=== PATIENT | female | born 1975 | race Caucasian/White ===

== ENCOUNTER 2024-02-18 05:23 | Day surgery (SDC) | payer MEDICAID ==
[~2024-02-18] VITALS: Ht 160 cm; Wt 89.5 kg
[~2024-02-18 05:23] MED LIST: AMYL1CAP63 PO; CHOL378P13 PO; FAMO20 PO; FERR325T23 PO; FEXO-353 PO; HYOS0.122 PO; LOSA-382 PO; METF-445 PO; ONDA-243 PO
[2024-02-18] MEDS ORDERED: FentaNYL CITRATE PF 100 MCG/2 ML VIAL ONE (05:26)
[2024-02-18] MEDS ORDERED: MIDAZOLAM HCL 2 MG/2 ML VIAL ONE (05:26)
[2024-02-18] MEDS ORDERED: MOXIFLOXACIN HCL 0.5% 3 ML OPHTHALMIC SOLUTION ONE ×3 (05:28→12:00)
[2024-02-18] MEDS ORDERED: RINGERS SOLUTION,LACTATED 500 ML IV ONE (05:28)
[2024-02-18] MEDS ORDERED: TETRACAINE HCL/PF 0.5% 4 ML OPHTHALMIC SOLUTION ONE ×3 (05:29→12:00)
[2024-02-18] MEDS ORDERED: PHENYLEPHRINE HCL 2.5% 2 ML OPHTHALMIC SOLUTION ONE (05:29)
[2024-02-18] MEDS: TETRACAINE HCL/PF 0.5% 4 ML OPHTHALMIC SOLUTION OS ONE (06:07)
[2024-02-18] MEDS: PHENYLEPHRINE HCL 2.5% 2 ML OPHTHALMIC SOLUTION OS ONE (06:08)
[2024-02-18] MEDS: MOXIFLOXACIN HCL 0.5% 3 ML OPHTHALMIC SOLUTION OS ONE (06:08)
[2024-02-18] MEDS: RINGERS SOLUTION,LACTATED 500 ML IV ONE (06:23)
[2024-02-18 06:41] LABS: GLUCOMETER DEV NAME(LOC) SDS.; GLUCOSE,POINT OF CARE 96 MG/DL (70-110)
[2024-02-18] MEDS ORDERED: POVIDONE-IODINE 10% 15 ML SOLUTION UD ONE (06:47)
[2024-02-18] MEDS ORDERED: PANT40TA54 PO (06:47)
[2024-02-18] MEDS ORDERED: PrednisoLONE ACETATE 1% 5 ML OPHTHALMIC SUSPENSION ONE ×2 (07:01→12:00)
[2024-02-18] MEDS ORDERED: TROPICAMIDE 1% 2 ML OPHTHALMIC SOLUTION ONE (07:02)
[2024-02-18] MEDS ORDERED: KETOROLAC TROMETHAMINE 0.5% 5 ML OPHTHALMIC SOLUTION ONE (07:02)
[2024-02-18] MEDS ORDERED: MitoMYcin 0.2 MG/VIAL KIT FOR OPHTHALMIC USE OS ONE (07:30)
[2024-02-18] MEDS ORDERED: ACETAMINOPHEN 325 MG TABLET ONE (09:16)
[2024-02-18] MEDS: ACETAMINOPHEN 325 MG TABLET PO PRN (09:28)
[2024-02-18] MEDS ORDERED: POVIDONE-IODINE 5% 30 ML OPHTHALMIC SOLUTION ONE (12:00)
[2024-02-18] MEDS ORDERED: BALANCED SALT 15 ML OPHTHALMIC IRRIG.SOLN ONE (12:00)
[2024-02-18] MEDS ORDERED: LIDOCAINE 2%/EPI 1:200,000/PF 10 ML VIAL ONE (12:00)
[2024-02-18] MEDS ORDERED: NEOMYCIN/POLYMYXIN B/DEXAMETH 3.5 GM OPHTHALMIC OINTMENT ONE (12:00)
[2024-02-18] MEDS: LIDOCAINE 2%/EPI 1:200,000/PF 20 ML VIAL ONE (13:20)
[2024-02-18] MEDS: BALANCED SALT 15 ML OPHTHALMIC IRRIG.SOLN ONE (13:20)
[2024-02-18] MEDS: NEOMYCIN/POLYMYXIN B/DEXAMETH 3.5 GM OPHTHALMIC OINTMENT ONE (13:21)
[2024-02-18] MEDS: POVIDONE-IODINE 5% 30 ML OPHTHALMIC SOLUTION ONE (13:23)
[2024-02-18] MEDS: TETRACAINE HCL/PF 0.5% 4 ML OPHTHALMIC SOLUTION ONE (13:23)
== END 2024-02-18 09:40 | disposition home or self-care (01) ==
LOC: SURGERY 05:23
PROVIDERS: ATTEND Ophthalmology
DX: H11.002 Unspecified pterygium of left eye (principal); I10 Essential (primary) hypertension; E11.9 Type 2 diabetes mellitus without complications; E66.01 Morbid (severe) obesity due to excess calories; J45.909 Unspecified asthma, uncomplicated; M19.90 Unspecified osteoarthritis, unspecified site; Z85.41 Personal history of malignant neoplasm of cervix uteri; Z79.84 Long term (current) use of oral hypoglycemic drugs; Z79.899 Other long term (current) drug therapy; Z90.49 Acquired absence of other specified parts of digestive tract; Z98.890 Other specified postprocedural states; Z68.35 Body mass index [BMI] 35.0-35.9, adult; Z88.6 Allergy status to analgesic agent; Z88.8 Allergy status to other drugs, medicaments and biological substances
CPT/HCPCS: 65426; 82962; 84703; J3010; J2250; J7120; V2790